=== PATIENT | female | born 1975 | race Hispanic/Latino ===

== ENCOUNTER 2022-05-09 15:00 | Emergency (ER) | payer OTHER ==
[~2022-05-09] VITALS: Ht 152.4 cm; Wt 73.0 kg
[2022-05-09 16:25] LABS: BASOPHILS % (AUTO) 0.3 % (0.0-5.0); EOSINOPHILS % (AUTO) 3.9 % (0.0-8.0); HEMATOCRIT 34.2 % (36-48); LYMPHOCYTES % (AUTO) 12.4 % (21.0-51.0); MEAN CORPUSCULAR HEMOGLOBIN 26.1 pg (27.0-33.0); MEAN CORPUSCULAR HGB CONC 30.7 g/dL (32.0-36.0); MEAN CORPUSCULAR VOLUME 85.1 fL (79-99); MONOCYTES % (AUTO) 5.1 % (3.0-13.0); PLATELET COUNT (AUTO) 338 K/uL (130-400); RED BLOOD CELL COUNT(AUTO) 4.02 MIL/uL (4.00-5.50); RED CELL DISTRIBUTION WIDTH 14.6 % (11.0-15.5); WHITE BLOOD COUNT (AUTO) 5.9 K/uL (4.8-10.8)
[2022-05-09 16:37] LABS: POTASSIUM 3.7 mmol/L (3.5-5.1)
[2022-05-09 16:44] LABS: ALBUMIN 3.3 g/dL (3.5-5.0); TOTAL PROTEIN, SERUM 7.8 g/dL (6.0-8.3)
[2022-05-09 16:53] LABS: APPEARANCE,URINE CLEAR (CLEAR); BILIRUBIN,URINE NEGATIVE (NEGATIVE); COLOR,URINE LIGHT-YELLOW (YELLOW); GLUCOSE, URINE (UA) >=1000 mg/dL (NEGATIVE); KETONES,URINE NEGATIVE (NEGATIVE); LEUKOCYTE ESTERASE ,URINE NEGATIVE Leu/uL (NEGATIVE); NITRATE,URINE 2+ (NEGATIVE); OCCULT BLOOD,URINE LARGE (NEGATIVE); PH,URINE 5.5 (5.0-8.0); PROTEIN,URINE NEGATIVE (NEGATIVE); UROBILINOGEN,URINE 0.2 mg/dL (0.2-1.0)
[2022-05-09 16:59] LABS: BACTERIA,URINE FEW /HPF (None Seen); RBC,URINE 51-100 /HPF (0-1); SQUAMOUS EPITHELIAL CELL,UR MOD /HPF (0-2); WBC,URINE 26-50 /HPF (0-1)
[2022-05-09] MEDS ORDERED: ONDANSETRON 4MG INJ IVP ONE (18:00)
[2022-05-09] MEDS ORDERED: DICYCLOMINE 20MG (10MG/ML) AMP IM ONE (18:00)
[2022-05-09] MEDS ORDERED: PANTOPRAZOLE 40 MG/VIAL IVP ONE (18:00)
[2022-05-09] MEDS ORDERED: MORPHINE 4 MG SYG IVP ONE (18:00)
[2022-05-09] MEDS ORDERED: IOHEXOL 350 MG/ML 100ML INFUS..BTL IV ONE (19:10)
[2022-05-09] MEDS ORDERED: 0.9% NACL 500ML IV.SOLN 500 ML IV SCH (22:30)
[2022-05-09] MEDS ORDERED: 0.9% NACL 500ML IV.SOLN 500 ML IV ONE (22:33)
[2022-05-09] MEDS ORDERED: ACET-2079 PO (22:58)
[2022-05-09] MEDS ORDERED: ONDA22I IM (22:58)
[2022-05-09] MEDS ORDERED: PANT40TA54 PO (22:58)
[2022-05-09] MEDS ORDERED: DICY20TA2 PO (22:58)
[2022-05-09 23:13] VITALS: BP 113/54
== END 2022-05-09 23:14 | disposition home or self-care (01) ==
LOC: EDH 15:00
DX: E87.1 Hypo-osmolality and hyponatremia (principal); K29.00 Acute gastritis without bleeding; R10.12 Left upper quadrant pain; E11.9 Type 2 diabetes mellitus without complications; E78.00 Pure hypercholesterolemia, unspecified; I11.0 Hypertensive heart disease with heart failure; Z90.49 Acquired absence of other specified parts of digestive tract; Z95.1 Presence of aortocoronary bypass graft; Z79.899 Other long term (current) drug therapy
CPT/HCPCS: 99285; 74177; 96374; 71046; 96375; 96361; 84484 ×2; 80053; 83880; 83690; 85025; 87077; 87088; 87186; 81001; 36415; 93005; 96372; J7040; J2405; J2270; C9113; J0500; Q9967

== ENCOUNTER 2022-06-30 13:26 | Emergency (ER) | payer OTHER ==
[~2022-06-30] VITALS: Ht 152.4 cm; Wt 74.8 kg
[~2022-06-30 13:26] MED LIST: ACET-2079 PO; DICY20TA2 PO; ONDA22I IM; PANT40TA54 PO
[2022-06-30] MEDS ORDERED: ACETAMINOPHEN 500 MG TABLET PO ONE (14:30)
[2022-06-30 16:17] VITALS: BP 127/69
== END 2022-06-30 16:43 | disposition home or self-care (01) ==
LOC: EDH 13:26
DX: S20.219A Contusion of unspecified front wall of thorax, initial encounter (principal); I10 Essential (primary) hypertension; E78.00 Pure hypercholesterolemia, unspecified; E11.9 Type 2 diabetes mellitus without complications; I25.10 Atherosclerotic heart disease of native coronary artery without angina pectoris; Z90.710 Acquired absence of both cervix and uterus; Z90.49 Acquired absence of other specified parts of digestive tract; V89.2XXA Person injured in unspecified motor-vehicle accident, traffic, initial encounter; Y93.89 Activity, other specified; Y92.89 Other specified places as the place of occurrence of the external cause; Y99.8 Other external cause status
CPT/HCPCS: 71045; 72070; 84484; 93005